=== PATIENT | male | born 1965 | race Caucasian/White ===

== ENCOUNTER 2019-05-18 16:08 | Emergency (ER) | payer OTHER ==
[~2019-05-18] VITALS: Ht 177.8 cm; Wt 99.8 kg
[~2019-05-18 16:08] MED LIST: BENTYL10 MG/ML IM
[2019-05-18] MEDS ORDERED: LOSARTAN-HCTZ1 EAC1 (16:32)
== END 2019-05-18 22:23 | disposition home or self-care (01) ==
LOC: ER 16:08
DX: R42 Dizziness and giddiness (principal)